=== PATIENT | male | born 1965 | race Caucasian/White ===

== ENCOUNTER → 2016-10-06 | Day surgery (SDC) | payer OTHER ==
[~2016-10-06] MED LIST: ALBUTEROL17 GM INH; AMLODIPINE BESYL5 MG PO; ASPIRIN81 M2 PO; CLARITIN10 M3 PO; CLARITIN10 MG PO; DESYREL50 MG PO; DIAZEPAM PO; FLAX SEED OIL1000 M1 PO; FLAX SEED OIL1000 M2 PO; FLAX SEED OIL1000 MG PO; FOLIC ACID PO; HYDROCHLOROTHIA25 MG PO; IMDUR PO; LIPITOR20 MG PO; LISINOPRIL PO; LOPRESSOR PO; NEURONTIN PO; NIASPAN PO; OXYCODON-ACETA1 EAC1 PO; OXYCODONE-ACET1 EAC1 PO; PLAQUENIL200 MG PO; PREDNISONE5 MG PO; PROTONIX PO; RITUXAN; SINGULAIR PO; ULTRAM PO; VICODIN 5/500 T1 TAB PO; VIT B-12 PO; VIT E PO; VITAMIN C PO; ZANAFLEX4 M1 PO; [UNRECOGNIZED DRUG - REMARK]
--- NOTE | ~2016-10-06 | OR ---
Unit #: [id number] #: [id number] Patient: FANG PEDERSEN [id number] [address] [place], [place] [address] [id number] O MR#: [id number] NAME: FANG PEDERSEN ROOM: Date of Procedure: 10/06/2016 Admission Date: 10/06/2016 Surgeon: Bean Le M.D. : 1965 Attending Physician: Bean Le M.D. Primary Care Physician: Bimal Redmond M.D. OPERATIVE REPORT PREOPERATIVE DIAGNOSES Low back pain, radiculopathy, degenerative lumbar disk disease, neck pain, cervical radiculopathy and degenerative cervical disk disease. POSTOPERATIVE DIAGNOSES Low back pain, radiculopathy, degenerative lumbar disk disease, neck pain, cervical radiculopathy and degenerative cervical disk disease. PROCEDURE PERFORMED 1. Lumbar epidural steroid injection with intravenous sedation under fluoroscopic guidance for needle localization. 2. Cervical epidural steroid injection with fluoroscopic guidance for needle localization. HISTORY The patient is a 51-year-old male with previously mentioned nonsurgical pathology. He has been treated with rehab medications and p.r.n. epidural steroid injections. Last single lumbar injection was done about 4 months ago. Last cervical was done approximately 7 months ago. He has done well with p.r.n. injections more frequently getting the lumbar than the single cervical. Based on history, pathology, symptomatology, and options, plan is to repeat a trial of the lumbar and cervical epidural steroid injections today. DESCRIPTION OF PROCEDURE The patient was placed in a seated position. Standard monitors were applied. Then, 2 mg of Versed were given for sedation and anxiolysis, which were adequate. Vital signs remained stable. Sterile prep and drape of the lumbar area was performed. The skin then at the L4-L5 level was localized with 1% lidocaine. An 18-gauge Avante Logixx needle was then advanced via loss of resistance technique under fluoroscopic guidance in toward the epidural space. After confirming proper positioning with fluoroscopy and radiographic contrast, 80 mg of Depo-Medrol and 4 mL of 0.125% bupivacaine were deposited. The patient tolerated this part of the procedure well. CERVICAL EPIDURAL STEROID INJECTION UNDER FLUOROSCOPIC GUIDANCE: A separate kit was used to sterilely prep and drape the patient's cervical spine. The skin then at the C5-C6 level was localized with 1% lidocaine. An 18-gauge Avante Logixx needle was then advanced via hanging drop technique and fluoroscopic guidance in toward the epidural space. The patient did not complain of pain or paresthesia. After confirming proper positioning with fluoroscopy and radiographic contrast, 80 mg of Depo-Medrol and 2 mL Unit #: [id number] #: [id number] Patient: FANG PEDERSEN of 0.25% bupivacaine were deposited. The patient tolerated the procedure well and was discharged to the recovery room in stable condition. Dictated by... Corina Cardenas/bernard TD: 10/06/2016 13:08 JOB #: [id number] OPERATIVE REPORT Page 1 of 1 X Bean Le MD X PROCEDURE OPERATIVE NOTE
== END | disposition home or self-care (01) ==
LOC: CCSC 07:18
DX: M50.122 Cervical disc disorder at C5-C6 level with radiculopathy (principal); M51.16 Intervertebral disc disorders with radiculopathy, lumbar region; K21.9 Gastro-esophageal reflux disease without esophagitis; I10 Essential (primary) hypertension; M06.9 Rheumatoid arthritis, unspecified
CPT/HCPCS: J1040; J2250

== ENCOUNTER → 2016-11-26 | Day surgery (SDC) | payer OTHER ==
--- NOTE | ~2016-11-26 | OR ---
Unit #: [id number] #: [id number] Patient: FANG PEDERSEN [id number] [address] [place], [place] [address] [id number] O MR#: [id number] NAME: FANG PEDERSEN. ROOM: Date of Procedure: 11/26/2016 Admission Date: 11/26/2016 Surgeon: Bean Le M.D. : 1965 Attending Physician: Bean Le M.D. Referring Physician: Bean Le M.D. Primary Care Physician: Bimal Redmond M.D. OPERATIVE REPORT PREOPERATIVE DIAGNOSES Back pain, radiculopathy, degenerative lumbar disk disease. POSTOPERATIVE DIAGNOSES Back pain, radiculopathy, degenerative lumbar disk disease. PROCEDURE PERFORMED Lumbar epidural steroid injection with fluoroscopic guidance for needle localization. INDICATIONS FOR PROCEDURE The patient is a 51-year-old male, who has had re-flare of his back pain and left lower extremity pain due to known nonsurgical degenerative disk disease. He was treated medically with p.r.n. epidural steroid injection. . Based on his history, pathology, and symptomatology, we are going to proceed with a repeat injection today. DESCRIPTION OF PROCEDURE The patient was placed in a seated position. Standard monitors were applied. Sterile prep and drape of the lumbar area was performed. The skin at the L4-L5 level was localized with 1% lidocaine. An 18-gauge burrp!tead needle was advanced via loss of resistance technique and fluoroscopic guidance in toward the epidural space. After confirming proper positioning with fluoroscopy and radiographic contrast, 80 mg of Depo-Medrol and 4 mL of 0.125% bupivacaine were deposited. The patient tolerated the procedure otherwise well and was discharged to the recovery room in stable condition. Dictated by... Corina CardenasP/bernard TD: 11/26/2016 15:56 JOB #: [id number] Unit #: [id number] #: [id number] Patient: FANG PEDERSEN OPERATIVE REPORT Page 1 of 1 X Bean Le MD X PROCEDURE OPERATIVE NOTE
== END | disposition home or self-care (01) ==
LOC: CCSC 07:16
DX: M51.16 Intervertebral disc disorders with radiculopathy, lumbar region (principal)
CPT/HCPCS: J1040; J2250

== ENCOUNTER → 2017-01-21 | Day surgery (SDC) | payer OTHER ==
--- NOTE | ~2017-01-21 | OR ---
Unit #: [id number] #: [id number] Patient: FANG PEDERSEN [id number] [address] [place], [place] [address] [id number] O MR#: [id number] NAME: FANG PEDERSEN ROOM: Date of Procedure: 01/21/2017 Admission Date: 01/21/2017 Surgeon: Bean Le M.D. : 1965 Attending Physician: Bean Le M.D. Primary Care Physician: Bimal Redmond M.D. OPERATIVE REPORT PREOPERATIVE DIAGNOSES 1. Low back pain, radiculopathy, degenerative lumbar disk disease. 2. Neck pain, cervical radiculopathy, degenerative cervical disk disease. PROCEDURES PERFORMED 1. Lumbar epidural steroid injection with intravenous sedation and fluoroscopic guidance for needle localization. 2. Cervical epidural steroid injection with fluoroscopic guidance. INDICATIONS FOR PROCEDURE The patient is a 51-year-old with previous mentioned diagnosis. He is not a surgical candidate. He was treated medically with p.r.n. epidural steroid injections. Also, he has rheumatoid arthritis. He had resurgence of the radiculopathy both of his left greater than right lower extremity and bilateral upper extremities, plan is to repeat an epidural steroid based on his good response in the past. DESCRIPTION OF PROCEDURE Procedure #1: The patient was placed in a seated position. Standard monitors were applied. 2 mg of Versed were given for sedation and anxiolysis, which were adequate. Vital signs remained stable. Sterile prep and drape then of lumbar area was performed. The skin at the L4-L5 level was localized with 1% lidocaine. An 18-gauge Hustead needle was then advanced via loss of resistance technique and fluoroscopic guidance in toward the epidural space. After confirming proper positioning with fluoroscopy and radiographic contrast, 80 mg of Depo-Medrol and 4 mL of 0.125% bupivacaine were deposited. The patient tolerated this part of procedure well. Procedure #2: Cervical epidural steroid injection with fluoroscopic guidance. A separate kit was used to sterilely prep and drape the patient's cervical spine. The skin then at the C5-C6 level was localized with 1% lidocaine. An 18-gauge Hustead needle was then advanced via hanging drop technique and fluoroscopic guidance in toward the epidural space. The patient did not complain of pain or paresthesia during needle advancement. After confirming proper positioning with fluoroscopy and radiographic contrast, a dose of 40 mg of Depo-Medrol and 2 mL of 0.25% bupivacaine were deposited. The patient tolerated the procedure otherwise well and was discharged to the recovery room in stable condition. Dictated by... Bean Le M.D. Unit #: [id number] #: [id number] Patient: FANG PEDERSEN LHP/modl TD: 01/21/2017 12:49 JOB #: [id number] CC: [facility] OPERATIVE REPORT Page 1 of 1 X Bean Le MD X PROCEDURE OPERATIVE NOTE
== END | disposition home or self-care (01) ==
LOC: CCSC 06:59
DX: M51.16 Intervertebral disc disorders with radiculopathy, lumbar region (principal); M50.10 Cervical disc disorder with radiculopathy, unspecified cervical region; I10 Essential (primary) hypertension; M06.9 Rheumatoid arthritis, unspecified; K21.9 Gastro-esophageal reflux disease without esophagitis; Z79.82 Long term (current) use of aspirin; Z79.899 Other long term (current) drug therapy
CPT/HCPCS: J1030; J1040; J2250